=== PATIENT | female | born 1980 | race Two or more races ===

== ENCOUNTER 2017-07-11 11:24 | Outpatient (CLI) | payer OTHER ==
[~2017-07-11 11:24] MED LIST: ATOR10TA PO; LOSA25TA14 PO
[2017-07-11 11:57] LABS: HEMATOCRIT 40.7 % (36-48); HEMOGLOBIN 13.1 g/dL (12.0-16.0); MEAN CORPUSCULAR HEMOGLOBIN 25 pg (27-31); MEAN CORPUSCULAR HGB CONC 32 g/dL (33-37); MEAN CORPUSCULAR VOLUME 78 fL (80-94); PLATELET COUNT (AUTO) 253 K/uL (140-450); RED BLOOD CELL COUNT(AUTO) 5.22 MIL/uL (4.20-5.40); RED CELL DISTRIBUTION WIDTH 12.3 % (11.6-13.7); WHITE BLOOD COUNT (AUTO) 8.6 K/uL (4.8-10.8)
[2017-07-11 12:18] LABS: EOSINOPHILS % (MANUAL) 3 % (0-4); LYMPHOCYTES % (MANUAL) 26 % (20-46); MONOCYTES % (MANUAL) 3 % (5-12)
[2017-07-11 13:16] LABS: ANION GAP 11.7 (8-16); CARBON DIOXIDE 27.5 mmol/L (21-32); CREATININE 0.9 mg/dL (0.6-1.3); POTASSIUM 4.2 mmol/L (3.5-5.1); TOTAL BILIRUBIN 0.4 mg/dL (0.0-1.0)
[2017-07-11 13:17] LABS: ALBUMIN 3.8 g/dL (3.4-5.0); CHOL/HDL RATIO 4.4 (1-4.5); THYROID STIMULATING HORMONE 3.82 uIU/mL (0.34-3.74)
== END 2017-07-11 20:43 | disposition home or self-care (01) ==
LOC: MLB 11:24
PROVIDERS: ATTEND Family Medicine
DX: E78.5 Hyperlipidemia, unspecified (principal); I10 Essential (primary) hypertension; M25.511 Pain in right shoulder
CPT/HCPCS: 36415; 73030; 80053; 82306; 84443; 85025

== ENCOUNTER 2019-01-07 15:44 | Outpatient (CLI) | payer OTHER | END 2019-01-07 20:15 | disposition home or self-care (01) | LOC: MCA 15:44 | PROVIDERS: ATTEND Family Medicine | DX: I10 Essential (primary) hypertension (principal) ==

== ENCOUNTER 2019-11-21 09:45 | Outpatient (CLI) | payer OTHER ==
[~2019-11-21 09:45] MED LIST changes: -LOSA25TA14 PO; +LOSA25TA32 PO
[2019-11-21 10:38] LABS: BASOPHILS % (AUTO) 0.5 % (0.0-2.0); EOSINOPHILS # (AUTO) 0.1 K/uL (0-0.4); HEMATOCRIT 39.6 % (36-48); HEMOGLOBIN 12.8 g/dL (12.0-16.0); LYMPHOCYTES # (AUTO) 2.4 K/uL (2.5-16.5); LYMPHOCYTES % (AUTO) 32.7 % (20.5-51.1); MEAN CORPUSCULAR HEMOGLOBIN 26 pg (27-31); MEAN CORPUSCULAR HGB CONC 32 g/dL (33-37); MEAN CORPUSCULAR VOLUME 79.7 fL (80-94); MONOCYTES # (AUTO) 0.4 K/uL (0.8-1.0); MONOCYTES % (AUTO) 5.3 % (1.7-9.3); NEUTROPHILS # (AUTO) 4.4 K/uL (1.8-7.7); NEUTROPHILS % (AUTO) 59.5 % (42.2-75.2); PLATELET COUNT (AUTO) 231 K/uL (140-450); RED BLOOD CELL COUNT(AUTO) 4.97 MIL/uL (4.20-5.40); RED CELL DISTRIBUTION WIDTH 13.2 % (11.6-13.7); WHITE BLOOD COUNT (AUTO) 7.4 K/uL (4.8-10.8)
[2019-11-21 11:05] LABS: ALBUMIN 3.8 g/dL (3.4-5.0); ANION GAP 12.7 (8-16); CARBON DIOXIDE 26.1 mmol/L (21-32); CHOL/HDL RATIO 3.5 (1-4.5); POTASSIUM 4.8 mmol/L (3.5-5.1); THYROID STIMULATING HORMONE 4.64 uIU/mL (0.34-3.74); TOTAL BILIRUBIN 0.6 mg/dL (0.0-1.0)
== END 2019-11-21 19:29 | disposition home or self-care (01) ==
LOC: MLB 09:45
PROVIDERS: ATTEND Family Medicine
DX: I10 Essential (primary) hypertension (principal); E78.5 Hyperlipidemia, unspecified; E55.9 Vitamin D deficiency, unspecified
CPT/HCPCS: 36415; 80053; 82306; 84443; 85025

== ENCOUNTER 2020-03-13 16:26 | Emergency (ER) | payer OTHER, SELFPAY ==
[~2020-03-13] VITALS: Ht 160 cm; Wt 83.0 kg
[2020-03-13 16:57] VITALS: BP 136/88
[2020-03-13 19:26] VITALS: BP 140/98
== END 2020-03-13 19:26 | disposition home or self-care (01) ==
LOC: MED 16:26 → EEVIPCON 16:26 → MED 19:26
DX: I10 Essential (primary) hypertension (principal); Z79.899 Other long term (current) drug therapy; Z20.828 Contact with and (suspected) exposure to other viral communicable diseases
CPT/HCPCS: 36415; 71045; 99284

== ENCOUNTER 2020-10-09 09:30 | Outpatient (CLI) | payer OTHER ==
[2020-10-09 11:17] LABS: CARBON DIOXIDE 24.6 mmol/L (21-32); CHOL/HDL RATIO 3.6 (1-4.5); CREATININE 0.9 mg/dL (0.6-1.3); POTASSIUM 4.6 mmol/L (3.5-5.1); TOTAL BILIRUBIN 0.5 mg/dL (0.0-1.0)
== END 2020-10-09 22:21 | disposition home or self-care (01) ==
LOC: MLB 09:30
PROVIDERS: ATTEND Family Medicine
DX: I10 Essential (primary) hypertension (principal)
CPT/HCPCS: 36415; 80053; 82306